=== PATIENT | male | born 1960 | race African-American/Black ===

== ENCOUNTER 2019-09-02 12:05 | Observation (INO) ==
[2019-09-02] MEDS ORDERED: ONDANSETRON 4 MG/2 ML VIAL IV PRN (14:12)
[2019-09-02] MEDS ORDERED: DOCUSATE SODIUM 100 MG CAPSULE PO PRN (14:12)
[2019-09-02] MEDS ORDERED: hydrALAZINE 20 MG/1 ML VIAL IV PRN (14:12)
[2019-09-02] MEDS ORDERED: ACETAMINOPHEN 325 MG TABLET PO PRN (14:12)
[2019-09-02] MEDS ORDERED: ENOXAPARIN 40 MG/0.4 ML SYRINGE SUBCUT SCH (14:30)
[2019-09-02] MEDS ORDERED: POLYETHYLENE GLYCOL POWDER 17 GM PACK PO PRN (14:38)
[2019-09-02] MEDS ORDERED: AMIODARONE INJ 150 MG in DEXTROSE 5% 100 ML IV ONE (14:41)
[2019-09-02 14:50] LABS: Basophils % 0.5 % (0.0-0.8); Eosinophils # 0.1 10*3/uL (0.0-0.87); Eosinophils % 1.5 % (0.00-10.9); Hematocrit 46.8 VOL% (42.0-52.0); Hemoglobin 16.1 GM/DL (14.0-18.0); Immature Granulocytes % 0.3 %; Immature Granulocytes Absolute 0.01 #; Lymphocytes # 1.5 10*3/uL (1.4-4.0); Lymphocytes % 36.8 % (21.2-54.2); Mean Corpuscular HGB Conc 34.4 GM/DL (32-36); Mean Corpuscular Volume 75.6 FL (87-102); Mean Platelet Volume 11.4 FL (9.6-12.0); Monocytes % 9.9 % (1.7-12.7); Platelet Count 175 T/CUMM (130-400); Red Blood Count 6.19 MC/CUMM (3.8-5.5); Red Cell Distribution Width 15.3 % (9.3-17.3); White Blood Count 3.9 T/CUMM (4-12)
[2019-09-02] MEDS ORDERED: AMIODARONE INJ 450 MG in DEXTROSE 5% 241 ML IV SCH ×2 (15:00→21:00)
[2019-09-02 15:03] LABS: Albumin 4.1 G/DL (3.4-5.0); Calcium 9.6 MG/DL (8.5-10.1); Osmolality,Calculated 276.8 MOS/KG (273-304); Total Protein 8.1 G/DL (6.4-8.3)
[2019-09-02] MEDS: SODIUM CHLORIDE 0.9% 1,000 ML IV SCH (15:18)
[2019-09-02 18:44] LABS: Apearance,Urine CLEAR (Clear); Bilirubin,Urine Negative (Negative); Blood, Urine Negative (Negative); Glucose,Urine (UA) Negative (Negative); Ketones,Urine 5 mg/dL (Negative); Mucus,Urine Occasional /LPF (Occasional); Nitrite,Urine Negative (Negative); Protein,Urine Negative; RBC,Urine 1 /HPF (0-4); Urine Color Yellow (Yellow); Urine Specific Gravity 1.021 (1.001-1.035); Urine Urobilinogen < 2.0 EU/DL (0.2-1.0); WBC,Urine 1 /HPF (0-6)
[2019-09-02] MEDS ORDERED: ENOXAPARIN 120 MG/0.8 ML SYRINGE SUBCUT SCH (21:00)
[2019-09-02] MEDS: ASCORBIC ACID 500 MG TABLET PO SCH (22:08)
[2019-09-03] MEDS: SODIUM CHLORIDE 0.9% 1,000 ML IV SCH (00:56)
[2019-09-03 06:11] LABS: Basophils % 0.6 % (0.0-0.8); Eosinophils # 0.1 10*3/uL (0.0-0.87); Eosinophils % 3.4 % (0.00-10.9); Hematocrit 43.9 VOL% (42.0-52.0); Immature Granulocytes % 0.3 %; Immature Granulocytes Absolute 0.01 #; Lymphocytes # 1.3 10*3/uL (1.4-4.0); Lymphocytes % 35.4 % (21.2-54.2); Mean Corpuscular HGB Conc 34.2 GM/DL (32-36); Mean Corpuscular Volume 76.2 FL (87-102); Mean Platelet Volume 12.2 FL (9.6-12.0); Monocytes % 9.3 % (1.7-12.7); Platelet Count 162 T/CUMM (130-400); Red Blood Count 5.76 MC/CUMM (3.8-5.5); Red Cell Distribution Width 14.9 % (9.3-17.3); White Blood Count 3.6 T/CUMM (4-12)
[2019-09-03] MEDS ORDERED: LEVOTHYROXINE 100 MCG TABLET PO SCH (06:30)
[2019-09-03 06:33] LABS: Albumin 3.5 G/DL (3.4-5.0); Bilirubin,Total 1.1 MG/DL (0.2-1.0); Calcium 8.9 MG/DL (8.5-10.1); Osmolality,Calculated 274.8 MOS/KG (273-304); Risk Ratio 4.34; Total Protein 7.3 G/DL (6.4-8.3); VLDL CHOLESTEROL 42.8 MG/DL
[2019-09-03 08:12] VITALS: BP 133/84
[2019-09-03] MEDS ORDERED: amLODIPine 10 MG TABLET PO SCH (09:00)
[2019-09-03] MEDS ORDERED: ASPIRIN EC 81 MG TABLET PO SCH (09:00)
[2019-09-03] MEDS ORDERED: AMIODARONE 200 MG TABLET PO SCH (09:00)
[2019-09-03] MEDS ORDERED: carvediloL 6.25 MG TABLET PO SCH (09:00)
[2019-09-03] MEDS ORDERED: LOSARTAN/HCTZ 50-12.5 MG TABLET PO SCH (09:00)
[2019-09-03] MEDS: ASCORBIC ACID 500 MG TABLET PO SCH (09:16)
== END 2019-09-03 10:45 | disposition home or self-care (01) ==
LOC: N.TELEN → SUATTDRO 14:12
PROVIDERS: ADMIT Internal Medicine; ATTEND Internal Medicine